=== PATIENT | female | born 1995 | race Caucasian/White ===

== ENCOUNTER 2017-09-03 14:29 | Emergency (ER) | END 2017-09-04 01:02 | disposition home or self-care (01) ==

== ENCOUNTER 2017-11-03 20:20 | Observation (INO) | END 2017-11-04 05:45 | disposition home or self-care (01) ==

== ENCOUNTER 2017-11-11 18:42 | Emergency (ER) | END 2017-11-12 02:47 | disposition home or self-care (01) ==